=== PATIENT | female | born 1950 | race Caucasian/White ===

== ENCOUNTER 2016-12-15 06:33 | Inpatient (IN) | payer OTHER ==
[~2016-12-15] VITALS: Ht 160 cm; Wt 70.5 kg
[2016-12-15] MEDS ORDERED: OPTIRAY 350 100 ML VIAL HMH IV ONE (06:34)
[2016-12-15] MEDS ORDERED: ONDANSETRON 4 MG VIAL ONE (07:33)
[2016-12-15] MEDS ORDERED: DILAUDID 1 MG/ML AMP ONE ×2 (07:33→11:24)
[2016-12-15] MEDS ORDERED: SODIUM CHLORIDE 0.9% 1,000 ML ONE (07:33)
[2016-12-15] MEDS ORDERED: POTASSIUM CHLOR 10MEQ -ED ONLY 50 ML IV ONE (10:09)
[2016-12-15] MEDS ORDERED: SODIUM CHLORIDE 0.9% 100 ML IV ONE (10:09)
[2016-12-15] MEDS ORDERED: BISACODYL EC 5 MG TAB PO PRN (10:35)
[2016-12-15] MEDS ORDERED: ALU/MAG/SIM 30 ML UDC PO PRN (10:35)
[2016-12-15] MEDS ORDERED: SALINE FLUSH 10 ML FLUSH PRN (10:35)
[2016-12-15] MEDS ORDERED: LACT RINGERS 1,000 ML IV SCH (10:35)
[2016-12-15] MEDS ORDERED: MAG HYDROX 30 ML UDC PO PRN (10:35)
[2016-12-15] MEDS ORDERED: BISACODYL 10 MG SUPP RECTAL PRN (10:35)
[2016-12-15] MEDS ORDERED: ED METRONIDAZOLE IV 100 ML IV ONE (11:24)
[2016-12-15] MEDS ORDERED: MORPHINE 2 MG/ML SYR IV PRN ×2 (12:55)
[2016-12-15 12:56] VITALS: BP_SYST 118; RESP 20; TEMP 99.9
[2016-12-15 12:57] VITALS: BP_SYST 120
[2016-12-15 12:58] VITALS: Ht 160 cm; Wt 70.5 kg
[2016-12-15] MEDS: METRONIDAZOLE 500MG/100ML 100 ML IV SCH ×3 (13:04→23:50)
[2016-12-15] MEDS: ONDANSETRON 4 MG VIAL IV PRN ×2 (14:05→21:11)
[2016-12-15] MEDS ORDERED: KCL CR 20 MEQ TAB PO SCH (16:30)
[2016-12-15 16:36] VITALS: BP_SYST 118; RESP 18; TEMP 99.3
[2016-12-15] MEDS ORDERED: MAGNESIUM SULF 1 GM/100 ML 100 ML IV ONE (16:50)
[2016-12-15] MEDS ORDERED: DILAUDID 1 MG/ML AMP IV PRN ×3 (17:25→20:25)
[2016-12-15] MEDS: SALINE FLUSH 10 ML FLUSH SCH (19:40)
[2016-12-15] MEDS: POTASSIUM CHLORIDE PREMIX 50 ML IV SCH ×3 (19:52→22:14)
[2016-12-15 20:42] VITALS: BP_SYST 118; RESP 20; TEMP 99.5
[2016-12-15] MEDS: DILAUDID 1 MG/ML AMP IV PRN (21:11)
[2016-12-16] VITALS (7 sets, daily range): BP systolic 114–128; RESP 16–20; TEMP 98.1–99.6
[2016-12-16] MEDS: POTASSIUM CHLORIDE PREMIX 50 ML IV SCH ×5 (01:26→15:39)
[2016-12-16] MEDS: ONDANSETRON 4 MG VIAL IV PRN (05:23)
[2016-12-16] MEDS: DILAUDID 1 MG/ML AMP IV PRN ×4 (05:23→21:59)
[2016-12-16] MEDS: SODIUM CHLORIDE 0.9% FLUSH BAG 500 ML IV SCH ×2 (05:24→09:44)
[2016-12-16] MEDS: METRONIDAZOLE 500MG/100ML 100 ML IV SCH ×4 (05:24→23:57)
[2016-12-16] MEDS: SALINE FLUSH 10 ML FLUSH SCH ×2 (08:00→20:00)
[2016-12-16] MEDS ORDERED: LEVOFLOXACIN 750 MG/150 ML 150 ML IV SCH (09:00)
[2016-12-16] MEDS ORDERED: SODIUM CHLOR 0.9% W/KCL 20MEQ 1,000 ML IV SCH (10:55)
[2016-12-16] MEDS: KCL CR 20 MEQ TAB PO SCH ×2 (11:45→14:09)
[2016-12-16] MEDS: SACCHA BOULARDII 250MG CAP PO SCH ×2 (16:55→21:24)
[2016-12-16] MEDS: CHOLESTYRAMINE 4 GM PKT PO SCH (21:23)
[2016-12-17] MEDS: METRONIDAZOLE 500MG/100ML 100 ML IV SCH ×2 (05:51→13:35)
[2016-12-17 07:53] VITALS: BP_SYST 128; RESP 18; TEMP 98.5
[2016-12-17] MEDS: SACCHA BOULARDII 250MG CAP PO SCH ×3 (09:07→19:10)
[2016-12-17] MEDS: SALINE FLUSH 10 ML FLUSH SCH ×2 (09:07→19:09)
[2016-12-17] MEDS: CHOLESTYRAMINE 4 GM PKT PO SCH (09:07)
[2016-12-17] MEDS: DILAUDID 1 MG/ML AMP IV PRN (10:38)
[2016-12-17] MEDS: MAGNESIUM SULF 1 GM/100 ML 100 ML IV SCH ×2 (10:39→11:58)
[2016-12-17 13:05] VITALS: BP_SYST 132; RESP 18; TEMP 98.3
[2016-12-17] MEDS ORDERED: ACETAMINOPHEN 325 MG TAB PO PRN (15:25)
[2016-12-17 16:22] VITALS: BP_SYST 138; RESP 18; TEMP 98.1
[2016-12-17] MEDS: METRONIDAZOLE 500 MG TAB PO SCH ×2 (16:45→19:09)
[2016-12-17] MEDS: Docosanol 10% Cream 2 Gm TOPICAL SCH ×3 (17:48→22:33)
[2016-12-17 18:54] VITALS: RESP 18
[2016-12-17] MEDS: OXYCODONE 5 MG TAB PO PRN ×2 (19:12→23:19)
[2016-12-17 19:19] VITALS: BP_SYST 122; RESP 18; TEMP 96.7
[2016-12-17 23:00] VITALS: BP_SYST 120; RESP 18; TEMP 98.1
[2016-12-18] MEDS: OXYCODONE 5 MG TAB PO PRN ×2 (03:25→20:52)
[2016-12-18 03:34] VITALS: BP_SYST 118; RESP 18; TEMP 98.1
[2016-12-18] MEDS: SODIUM CHLORIDE 0.9% FLUSH BAG 500 ML IV SCH (06:00)
[2016-12-18] MEDS: Docosanol 10% Cream 2 Gm TOPICAL SCH ×5 (06:24→22:00)
[2016-12-18 07:17] VITALS: BP_SYST 134; RESP 18; TEMP 97.7
[2016-12-18] MEDS ORDERED: KCL CR 20 MEQ TAB PO ONE (08:25)
[2016-12-18] MEDS: METRONIDAZOLE 500 MG TAB PO SCH ×3 (09:23→20:47)
[2016-12-18] MEDS: SACCHA BOULARDII 250MG CAP PO SCH ×3 (09:23→20:47)
[2016-12-18] MEDS: SALINE FLUSH 10 ML FLUSH SCH ×2 (09:26→20:48)
[2016-12-18 10:51] VITALS: BP_SYST 146; RESP 18; TEMP 98
[2016-12-18] MEDS ORDERED: GUAIFEN/DM 10 ML UDC PO PRN (11:35)
[2016-12-18] MEDS ORDERED: DILAUDID 1 MG/ML AMP IV PRN (11:35)
[2016-12-18] MEDS: NEB-XOPENEX 1.25 MG/3 ML INH SCH ×3 (11:39→23:20)
[2016-12-18] MEDS: FLUTICASONE 0.05% NA BTL NARE EACH SCH ×2 (12:17→20:48)
[2016-12-18] MEDS: CETIRIZINE 10 MG TAB PO SCH (12:17)
[2016-12-18 16:30] VITALS: BP_SYST 128; RESP 18; TEMP 98.6
[2016-12-18 19:26] VITALS: BP_SYST 132; RESP 18; TEMP 99.4
[2016-12-18 23:07] VITALS: BP_SYST 112; RESP 18; TEMP 99
[2016-12-19 04:42] VITALS: BP_SYST 102; RESP 18; TEMP 98.5
[2016-12-19] MEDS: SODIUM CHLORIDE 0.9% FLUSH BAG 500 ML IV SCH (05:41)
[2016-12-19] MEDS: Docosanol 10% Cream 2 Gm TOPICAL SCH ×2 (05:42→09:22)
[2016-12-19] MEDS: NEB-XOPENEX 1.25 MG/3 ML INH SCH (07:13)
[2016-12-19 07:29] VITALS: BP_SYST 110; RESP 16; TEMP 97.9
[2016-12-19] MEDS: CETIRIZINE 10 MG TAB PO SCH (09:21)
[2016-12-19] MEDS: SALINE FLUSH 10 ML FLUSH SCH (09:21)
[2016-12-19] MEDS: SACCHA BOULARDII 250MG CAP PO SCH (09:21)
[2016-12-19] MEDS: METRONIDAZOLE 500 MG TAB PO SCH (09:21)
[2016-12-19] MEDS: FLUTICASONE 0.05% NA BTL NARE EACH SCH (09:22)
[2016-12-19 10:57] VITALS: BP_SYST 110; RESP 16; TEMP 97.9
== END 2016-12-19 13:42 | disposition home or self-care (01) | DRG 373 ==
LOC: ENRESERVDT → ENRESERVTM → ER 06:33 → ENPENDDIS 10:35 → EMR 10:35 → 4NT 12:52
PROVIDERS: ADMIT Internal Medicine; ATTEND Internal Medicine
DX: A04.7 Enterocolitis due to Clostridium difficile (principal); I10 Essential (primary) hypertension; E86.0 Dehydration; E87.6 Hypokalemia; Z80.0 Family history of malignant neoplasm of digestive organs; K21.9 Gastro-esophageal reflux disease without esophagitis; Z79.82 Long term (current) use of aspirin
CPT/HCPCS: 36415; 74177; 80048; 80053; 81001; 82274; 83630; 83690; 83735; 84132; 85025; 85610; 87045; 87046; 87493; 94640; 94799; 96361; 96365; 96367; 96375; 96376; 99223; 99232; 99233; 99239